=== PATIENT | male | born 1955 | race Caucasian/White ===

== ENCOUNTER 2025-03-16 09:05 | Outpatient (CLI) | payer MEDICARE, OTHER, SELFPAY ==
--- OUTSIDE RECORDS SUMMARY | 2025-01-24 06:40 | XMS_ITS ---
Author Organization [facility] OF [facility] Address [address] [place] [address] Care Team Providers Care Optometrist/Practice Owner Name Role Phone Gavin Fung Primary Care Provider Rossy Escoto Unavailable [phone] REASON FOR VISIT High Risk Foot care Encounters Encounter Location Date Provider Diagnosis 1 OF [facility] [address] [place] [address] 01/24/2025 Rossy Freeman Plan Of Treatment Next Appt Details Provider Name:Rossy Freeman, 05/02/2025 11:00:00 AM, [address], [place], [address], Progress Notes * Dayton WHITTINGTONDOB:1955 (69 yo M)Acc No.[id number]:01/24/2025 Progress Note Patient: Dayton Kelley Provider: Val Freeman DPM :1955 A ge:69 Y S ex:Male Date:01/24/2025 Address:[address] [id number] Pcp:Gavin Fung Subjective: * Chief Complaints: * H igh Risk Foot care * Electronic signature of Krista Freeman DPM on 03/16/2025 at 10:05 AM CDT Sign off status: Pending * Provider: Val Freeman DPM Date: 0 01/24/2025 Generated for Delbert sawant/Loulou/Vin on: 1 10:05 AM CDT
--- OUTSIDE RECORDS SUMMARY | 2025-03-16 10:05 | XMS_ITS | Clinical Summary ---
Author Organization [facility] Healthcare Address [address] [place] [address] Care Team Providers Care Vault Keeper Name Role Phone Gavin Fung MD Primary Care Provider Allergies Active Allergy Reactions Criticality Noted Date Comments Penicillins Hives Medium 12/15/2017 Sulfa (Sulfonamide Antibiotics) Hives Medium 11/[address] (CYMBALTA) 60 mg capsule 2 times daily. Acti ve pregabalin (LYRICA) 50 mg capsule 2 times daily. Activ e mometasone (NASONEX) 50 mcg/actuation nasal spray daily. Active loratadine (CLARITIN) 10 mg tablet 9 Active atorvastatin (LIPITOR) 20 mg tablet Take 0.5 tablets (10 mg total) by mouth daily Active levocetirizine (XYZAL) 5 mg tablet Take 1 tablet (5 mg total) by mouth daily Active diclofenac sodium (VOLTAREN) 1 % gel 9 Active finasteride (PROSCAR) 5 mg tablet Take 1 tablet (5 mg total) by mouth daily 1 Active acetaminophen (TYLENOL) 500 mg tablet Take 2 tablets (1,000 mg total) by mouth daily 2 Active latanoprost (XALATAN) 0.005 % ophthalmic solution Administer 1 drop into affected eye(s) daily 3 Active omeprazole (PriLOSEC) 40 mg capsule 3 Active terbinafine (LamiSIL) 250 mg tablet Take 1 tablet (250 mg total) by mouth daily 4 Active lidocaine (LIDODERM) 5 % Place 1 patch on the skin daily 3 Active fluticasone propion-salmete roL (ADVAIR DISKUS) 500-50 mcg/dose diskus inhaler Inhale 1 puff 2 (two) times a day 4 Active azelastine (ASTELIN) 137 mcg (0.1 %) nasal spray Administer 2 sprays into affected nostril(s) 2 (two) times a day 3 Active albuterol HFA (PROVENTIL HFA,VENTOLIN HFA,PROAIR HFA) 90 mcg/actuation inhaler INHALE 2 PUFFS BY MOUTH INTO THE LUNGS EVERY 6 HOURS NEEDED FOR WHEEZING Active polyethylene glycol (MIRALAX) 17 gram packet Take by mouth as needed Active cinnamon bark (Cinnamon) 500 mg capsule Take 1 capsule (500 mg total) by mouth daily Active metFORMIN (GLUCOPHAGE) 500 mg tablet Take 1 tablet (500 mg total) by mouth daily with breakfast 4 Active turmeric/turmer ic ext/pepr ext (turmeric-turme heena ext-pepper) 900-100-5 mg capsule Take 2,000 mg by mouth nightly 4 Active vibegron 75 mg tablet Take 75 mg by mouth daily 4 Active triamcinolone (KENALOG) 0.1 % cream Apply topically 2 (two) times a day Active benzonatate (TESSALON) 200 mg capsule 4 Active methylPREDNISol one (MEDROL DOSEPACK) 4 mg Dosepack 4 Active QUEtiapine (SEROquel) 25 mg tablet Take 1 tablet (25 mg total) by mouth 2 (two) times a day 60 tablet 5 4 Active Active Problems Problem Noted Date Diagnosed Date Diastasis recti 05/13/2023 Chronic bilateral low back pain without sciatica 02/11/2023 SAH (subarachnoid hemorrhage) 12/22/2022 Prediabetes 03/19/2022 Precordial pain 01/07/2022 Gastroesophageal reflux disease without esophagi tis 12/27/2021 Incomplete right bundle branch block (RBBB) 10/2018 Overview (10/30/2023): Based on EKG done through the [place] Family history of congenital or genetic conditio n 02/04/2018 Frontotemporal dementia 12/15/2017 Assessment & Plan (12/08/2024 11:41 AM CDT): Overall, stable cognitive testing. Continue current medication regimen. He is now at [facility] and has acclimated well. He expressed his desire to move to the assisted living portion but memory care would be more suitable for him. Follow-up in 6 months via Zoom or sooner if need be. Assessment & Plan (05/24/2024 11:00 AM RECRUITER ACCOUNT MANAGER): Overall, stable cognitive testing. He continues to have behavioral disturbances. We will trial increasing his quetiapine/Seroquel to 25 mg BID. We will order physical therapy as it was beneficial for him in the past. Recommended CS downsize patient's phone to a low function phone that does not have access to the web. Follow-up in 6 months or sooner if need be. Assessment & Plan (11/25/2023 9:37 AM CDT): Initiate 25 mg quetiapine/Seroquel nightly to help with behavioral changes. Patient to move to [facility] next week. I would like him to start physical therapy. CS states he may already have physical therapy scheduled but will notify me if we need a new order. Encouraged patient to engage in activities within facility when he moves in and increase physical activity. Follow-up in 6 months or sooner if need be. Assessment & Plan (01/06/2023 6:50 PM CDT): Interval events following fall, SDH, SAH reviewed. Pt was on Keppra for 1 week for seizure management following SDH/ SAH. This coincided with decline in cognition and mobility. Keppra was stopped on 01/01. UTI was identified around the same time, currently on abx for that. Pt's mentation is clearing and mobility is improving just starting today. Still quite far off baseline. Prolonged latency to questions during telehealth interview today. Plan to reconnect with telehealth visit in 2 months to determine new baseline when he is further out from recovery. Dispo after rehab discussed. VA benefits to be availed. CS open to further placement if DC to home is not manageable. Assessment & Plan (01/01/2021 5:50 PM CDT): Recommend increasing Cymbalta to 90mg in AM and 60mg in PM to help address obsessions and minimize sleep disturbance. Pt already enrolled in FTD registry. Scheduled to have ALLFTD visit this month. Assessment & Plan (12/27/2019 11:33 PM CDT): Pt/ Family to send in list of all medications and all supplements in order to maintain an accurate list in the medical record. Encouraged to limit consumption of and spending on supplements that are unproven. - Curcumin Revisit with primary PHOTOGRAPHERS' MODEL about increasing duloxetine to better address OCD behaviors. 3D bMRI to monitor for interval change since 2017. ALLFTD enrollment discussed. Assessment & Plan (12/21/2018 5:13 PM CDT): Monitor driving Pain management through PCP to [place] Recommend discontinuing Ranitidine in favor of PPI (Prevacid, Prilosec, Nexium) to minimize confusion. To be directed by PCP. Assessment & Plan (12/15/2017 5:27 PM CDT): No changes to medications. 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 13 OA (osteoarthritis) of knee 09/02/2012 Rotator cuff tendinitis 09/02/2012 Allergic rhinitis 04/14/2012 Hyperlipidemia 02/11/2012 Peripheral neuropathy 02/11/2012 TMJ (dislocation of temporomandibular joint) Plantar fascia syndrome 12/30/1999 Immunizations Immunization Administration Dates Next Due Influenza, Quadrivalent, Hig h Dose, Preservative Free, Intrr 02/26/2022,03/06/2021,02/16/2020 Influenza, Quadrivalent, Spl it, Preservative Free, Intramuscular 02/05/2019,03/02/2018,03/01/2018 Influenza, Trivalent, Preser vative Free, Intramuscular 02/29/2016,02/17/2015 Influenza, Unspecified 03/23/2023,2020,03/02/2018,03/01,02/16/2013 Moderna SARS-CoV-2 Monovalen t Vaccination (12+ YRS) 02/26/2022,09/21/2021 Pneumococcal Conjugate PCV 13 02/05/2019 Pneumococcal Polysaccharide PPV23 07/05/2020,08/2014 RSV, Bivalent, Protein Subun it Rsvpref, Diluent (Abrysvo) 04/22/2023 Tdap 08/20/2018,04/14/2012 ZOSTER Recombinant 08/03/2021,02/02/2021 Surgical History Surgery Date Site/Laterality Comments [place] TONSILLECTOMY PRIMARY/SEC ONDARY <AGE 12 Tonsillectomy - (Added by TW Conv) [place] SEPTOPLASTY/SUBMUCOUS RES ECJ W/WO CARTILAGE GRF Septoplasty - (Added by TW Conv) [place] IRIDOTOMY STAB INC SPX XC P TRANSFIXION Iridotomy - (Added by TW Conv) [place] RPR NONUNION/MALUNION RADIUS/ULNA W/O AUTOGRAFT Repair Of Nonunion Of The Radius - (Added by TW Conv) VASECTOMY IRIDOTOMY / IRIDECTOMY SEPTOPLASTY TONSILLECTOMY REPAIR NONUNION / DEFECT OF RADIUS / ULNA Medical History Medical History Date Comments Dementia (HCC) BPH (benign prostatic hyperplasia) Fibromyalgia HLD (hyperlipidemia) Sleep apnea Head injury SDH (subdural hematoma) (HCC) 12/22/2022 Pi ckleball fall SAH (subarachnoid hemorrhage) 12/22/2022 Pi ckleball fall Frontotemporal dementia d/t C9or f72 mutation Polypharmacy 12/22/2022 Effects of Keppr a Family History Medical History Relation Name Comments ALS Cousin Family history of amyotrophic lateral sclerosis - (Added by TW Conv) Down syndrome Daughter Family history of Down syndrome - (Added by TW Conv) ALS Father's Brother Family hist ory of amyotrophic lateral sclerosis - (Added by TW Conv) ALS Father's Sister Family histo ry of amyotrophic lateral sclerosis - (Added by TW Conv) Stroke Mother Family history of cerebrovascular accident - (Added by TW Conv) Relation Name Status Comments Cousin Daughter Father's Brother Father's Sister Mother Social History Tobacco Use Types Packs/Day Years Used Date Smoking Tobacco: Never Smokeless Tobacco: Never Tobacco Cessation:Counseling Given: Not Answered Sex and Gender Information Value Date Recorded Sex Assigned at Not on file Legal Sex Male 7:40 AM RECRUITER ACCOUNT MANAGER Gender Identity Male 10/21/2019 11:29 AM CDT Sexual Orientation Straight 10/21/2019 11 :29 AM CDT Obstetrics History Last Filed Vital Signs Vital Sign Reading Time Taken Comments Blood Pressure 158/82 05/24/2024 10:11 AM RECRUITER ACCOUNT MANAGER Pulse 87 05/24/2024 10:11 AM RECRUITER ACCOUNT MANAGER Temperature 36.9 C (98.5 F) 05/24/2024 10:11 AM RECRUITER ACCOUNT MANAGER Respiratory Rate - - Oxygen Saturation 97% 05/24/2024 10:11 AM RECRUITER ACCOUNT MANAGER Inhaled Oxygen Concentration - - Weight 118.2 kg (260 lb 8 oz) 05/24/2024 10:11 A M RECRUITER ACCOUNT MANAGER Height 180.3 cm (5' 11) 05/24/2024 10:11 AM RECRUITER ACCOUNT MANAGER Body Mass Index 36.33 05/24/2024 10:11 AM RECRUITER ACCOUNT MANAGER Plan of Treatment Health Maintenance Due Date Last Done Comments Colon Cancer Screening-Colonoscopy 1955 Depression Screening 1955 Fall Risk Assessment 1955 Hepatitis C Screening 1955 Well Visit 65+ 2018 Covid-19 Vaccine (2024-2 6 season) 2025 02/26/2022, 09/21/2021, 04/17/2021, Additional history exists Influenza Vaccine (#1) 2025 , 03/23/2023, 02/26/2022, Additional history exists DTaP/Tdap/Td Vaccine (5 - Td or Tdap) 08/20/2028 08/20/2018, 04/14/2012, 05/02/2009, Additional history exists Pneumococcal vaccine 65+ Completed 021, 02/05/2019, 03/07/2016, Additional history exists Zoster Vaccine Completed 08/03/2021, 07/2020, 10/13/2014 Insurance MEDICARE Remitly MEDICARE FOR LIFE [facility] [place] [id number] MEDICARE FOR LIFE Care Teams Vault Keeper Relationship Specialty Start Date End Date Gavin Fung MD [address] [facility] [address] [place] [address] PCP - General Family Practice 04/03/23
--- OUTSIDE RECORDS SUMMARY | 2025-03-16 10:06 | XMS_ITS | Patient Health Record ---
Author Organization [facility] Address [address] [place] [address] Care Team Providers Care Outpatient Services Director Name Role Phone Gavin Fung Primary Care Provider Rossy Escoto Unavailable [phone] Allergies Allergen (clinical drug ingredient) Drug/Non Drug Allergy documented on EMR Reaction Allergy Type Onset Date Status Penicillin Unknown Drug Allergy Active Substance with sulfonamide structure and antibacterial mechanism of action (substance) Sulfa Antibiotics Unknown Drug Allergy Active Reason For Referral No Information Medications Medication SIG (Take, Route, Frequency, Duration) Notes Start Date End Date Status Claritin Active DULoxetine HCl 60 MG Capsule Delayed Release Particles Oral; Duration: 28 Days Active metFORMIN HCl ER 500 MG Tablet Extended Release 24 Hour Oral; Duration: 28 Days Active Polyethylene Glycol Active Turmeric Active Pregabalin 50 MG Capsule Oral; Duration: 30 Days Not-Taking/PRN Cymbalta Active Albuterol Sulfate HFA 108 (90 Base) MCG/ACT Aerosol Solution Inhalation; Duration: 25 Days Active Cinnamon Active QUEtiapine Fumarate 25 MG Tablet Oral; Duration: 28 Days Active Multivitamin Active Finasteride 5 MG Tablet Oral; Duration: 28 Days Active PriLOSEC Active Nitrofurantoin Monohyd Macro 100 MG Capsule Oral; Duration: 10 Days Active Tylenol Arthritis Pain Active Lidocaine 5 % Patch External; Duration: 30 Days Active Cranberry Active SEROquel Active Trulicity Active MiraLax Active Azelastine & Fluticasone Active Lipitor Active Latanoprost 0.005 % Solution Ophthalmic; Duration: 28 Days Active Social History Tobacco Use: Social History Observation Description Date Details (start date - stop date) Never Smoker NA - NA Social History Tobacco Use: Social Info Question Answer Notes Tobacco Control (Standard) Tobacco use: Nonsmoker Additional Details Category Social Info Options Details Miscellaneous: Exercise: Sedentary Occupation: Retired Security enforcer, Disabled FMS Living with: friends, Drugs/Alcohol: Alcohol use: Social alcoho l use Recreational drugs Patient martina ross recreational drug use Problems Problem Type SNOMED Code ICD Code Onset Dates Problem Status W/U Status Risk Notes Problem Peripheral venous insufficiency (79221011) Venous insufficiency (I87.2) Active confirmed Problem Plantar fasciitis (295899082) Plantar fasciitis (M72.2) Active confirmed Vital Signs Height 72 in 02/07/2025 Weight 250 lbs 02/07/2025 BMI 33.9 kg/m2 02/07/2025 Encounters Encounter Location Date Provider Diagnosis 1 [facility] [address] [place] [address] 04/12/2024 Rossy Freeman Venous insufficiency I87.2 ; Onychogryphosis L60.2 ; Nail dystrophy L60.3 ; Callus of foot L84 and Plantar fasciitis M72.2 1 [facility] [address] [place] [address] 06/28/2024 Rossy Freeman Venous insufficiency I87.2 ; Onychogryphosis L60.2 and Nail dystrophy L60.3 1 [facility] [address] [place] [address] 09/06/2024 Rossy Freeman Venous insufficiency I87.2 ; Onychogryphosis 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 ; Nail dystrophy L60.3 and Toe pain, left M79.675 1 [facility] [address] [place] [address] 11/15/2024 Rossy Freeman Venous insufficiency I87.2 ; Onychogryphosis L60.2 and Nail dystrophy L60.3 1 [facility] [address] [place] [address] 02/07/2025 Rossy Freeman Venous insufficiency I87.2 ; Onychogryphosis L60.2 ; Nail dystrophy L60.3 and Open wound of left lower extremity, initial encounter S81.802A Assessments Encounter Date Diagnosis (ICD Code) Assessment Notes Treatment Notes Treatment Clinical Notes Section Notes 04/12/2024 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 06/28/2024 Venous insufficiency (ICD-10 - I87.2) Considering the associated comorbidities and physical exam findings today, this patient is at substantial risk of developing serious foot complications in the absence of regular and professional palliative foot care. 09/06/2024 Onychogryphosis (ICD-10 - L60.2) 06/28/2024 Onychogryphosis (ICD-10 - L60.2) 09/06/2024 Venous insufficiency (ICD-10 - I87.2) Considering the associated comorbidities and physical exam findings today, this patient is at substantial risk of developing serious foot complications in the absence of regular and professional palliative foot care. 11/15/2024 Onychogryphosis (ICD-10 - L60.2) 11/15/2024 Venous insufficiency (ICD-10 - I87.2) Considering the associated comorbidities and physical exam findings today, this patient is at substantial risk of developing serious foot complications in the absence of regular and professional palliative foot care. 02/07/2025 Onychogryphosis (ICD-10 - L60.2) 02/07/2025 Venous insufficiency (ICD-10 - I87.2) Considering the associated comorbidities and physical exam findings today, this patient is at substantial risk of developing serious foot complications in the absence of regular and professional palliative foot care. 02/07/2025 Nail dystrophy (ICD-10 - L60.3) 11/15/2024 Nail dystrophy (ICD-10 - L60.3) 06/28/2024 Nail dystrophy (ICD-10 - L60.3) 09/06/2024 Nail dystrophy (ICD-10 - L60.3) 04/12/2024 Nail dystrophy (ICD-10 - L60.3) 04/12/2024 Callus of foot (ICD-10 - L84) 09/06/2024 Toe pain, left (ICD-10 - M79.675) Evaluation today included a review of medical history, review of systems, discussion of exam findings, and review of diagnoses and treatment options. His toes are feeling better. I discussed that the pain could have been nerve related. He will monitor his symptoms. I discussed potential use of topical medication as needed. 02/07/2025 Open wound of left lower extremity, initial encounter (ICD-10 - S81.802A) Evaluation today included a review of medical history, review of systems, discussion of exam findings, and review of diagnoses and treatment options. Recommended continued application of manuka honey daily with a bandage. He was advised to monitor the wound for any signs of infection and should call with any issues. I discussed the importance of controlling his edema for wound healing. He was advised to elevate his legs as much as possible. He can also use a compression sock for the swelling. 04/12/2024 Plantar fasciitis (ICD-10 - M72.2) Evaluation today included a review of medical history, review of systems, discussion of exam findings, and review of diagnoses and treatment options. Recommended that he rest, ice and elevate the feet as needed for pain. He was given stretching exercises to perform. I stressed the importance of wearing good supportive shoes. I discussed the potential use of orthotics in his shoes. Plan Of Treatment Next Appt Details Provider Name:Rossy Freeman, 05/02/2025 11:00:00 AM, [address], [place], [address], Insurance Providers Payer Name Payer Address Payer Phone Subscriber Number Group Number Insured Name Patient Relationship to Insured Coverage Start Date Coverage End Date Medicare [address] Feng ross [place] [id number] Dayton Boswell Self - patient is the insured [employer] [address] [place] [address] [id number] Andreia [place] Self - patient is the insured Medical (General) History Medical History History ICD Code Arthritis, Depression, GERD, Hyperlipide floyd, Dementia
--- OUTSIDE RECORDS SUMMARY | 2025-03-16 10:06 | XMS_ITS | Patient Health Record ---
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 DOMENICO ROCK Primary Care Provider Lorraine Reynoso Unavailable [phone] Allergies Allergen (clinical drug ingredient) Drug/Non Drug Allergy documented on EMR Reaction Allergy Type Onset Date Status Penicillin Unknown Drug Allergy Active Substance with sulfonamide structure and antibacterial mechanism of action (substance) Sulfa Antibiotics Unknown Drug Allergy Active Reason For Referral No Information Medications Medication SIG (Take, Route, Frequency, Duration) Notes Start Date End Date Status Latanoprost 0.005 % Solution 1 drop in each eye Ophthalmic Once a day Active Gemtesa 75 MG Tablet 1 tablet Orally Onc e a day Active Finasteride 5 MG Tablet 1 tablet Orally Once a day Active DULoxetine HCl 60 MG Capsule Delayed Release Particles 1 capsule Orally twice a day Active Diclofenac Sodium 1 % Gel as directed Ex ternally 4 times a day Active Cranberry 200 MG Capsule 2 capsules Orally daily Active cloZAPine 25 MG Tablet 1.5 tablets Orall y Once a day Active Triamcinolone Acetonide 0.1 % Ointment 1 application Externally Twice a day Active Cinnamon 500 MG Capsule 1 capsule Orally daily Active QUEtiapine Fumarate 25 MG Tablet 1 tablet Orally Once a day As needed Active CertaVite Senior - Tablet 1 tablet Orally daily Active EvenCare G2 Test - Strip as directed In Vitro Active Azelastine HCl 137 MCG/SPRAY Solution 2 sprays in each nostril Nasally Twice a day Active UpstartCare G2 Monitor - Device as directed Active Benzonatate 200 MG Capsule 1 capsule as needed Orally Three times a day Active Albuterol 90 MCG/ACT Aerosol Solution 2 puffs Inhalation every 8 hours As needed Active Atorvastatin Calcium 20 MG Tablet 1 tablet Orally Once a day Active Acetaminophen ER 650 MG Tablet Extended Release 2 tablets Orally twice a day Active Acetaminophen 325 MG Tablet 2 tablets Orally every 4 hours As needed Active Turmeric 500 MG Capsule 4 capsules Orally daily Active QUEtiapine Fumarate 50 MG Tablet 2 tablets Orally Once a day Active Macrobid 100 MG Capsule 1 capsule with f ood Orally twice a day; Duration: 5 days 03/11/2025 03/16/2025 Active Polyethylene Glycol 3350 17 GM/SCOOP Powder as directed Orally daily Active Probiotic - Capsule 1 capsule Orally twi ce a day; Duration: 7 days 03/11/2025 03/18/2025 Active Omeprazole 40 MG Capsule Delayed Release 1 capsule 1/2 to 1 hour before morning meal Orally Once a day Active Mounjaro 2.5 MG/0.5ML Solution Pen-injector 0.5 ml Subcutaneous once a week Active Pregabalin 50 MG Capsule 1 capsule Orall y twice a day 03/11/2025 Active metFORMIN HCl ER 500 MG Tablet Extended Release 24 Hour 2 tablets Orally Once a day Active Loratadine 10 MG Tablet 1 tablet Orally Once a day Active Lidocaine 5 % Patch 1 patch remove after 12 hours Externally Once a day Active Social History Tobacco Use: Social History Observation Description Date Details (start date - stop date) Never Smoker NA - NA Social History Drug/Alcohol: Social Info Question Answer Notes Drugs Have you used drugs other than those for medical reasons in the past 12 months? No AUDIT-C (Standard) Did you have a drink containing alcohol in the past year? 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) Active confirmed Problem Essential hypertension (66464849) Essential (primary) hypertension (I10) Active confirmed Problem Allergic rhinitis (22508456) Allergic rhinitis, unspecified (J30.9) Active confirmed Problem Gastro-esophagea l reflux disease without esophagitis (870395297) Gastro-esophagea l reflux disease without esophagitis (K21.9) Active confirmed Problem Fibromyalgia (032116970) Fibromyalgia (M79.7) Active confirmed Problem Right bundle branch block (61835394) Right bundle branch block (I45.10) Active confirmed Problem Neuropathy (391880987) Neuropathy (G62.9) Active confirmed Problem Subarachnoid hemorrhage (77126683) Subarachnoid hemorrhage (I60.9) Active confirmed Problem Type II diabetes mellitus without complication (272948474) Diabetes mellitus without complication (E11.9) Active confirmed Problem Dementia (62761759) Dementia (F03.90) Active confirmed Encounters Encounter Location Date Provider Diagnosis [facility] [address] [place] [address] 03/08/2025 DOMENICO ROCK [facility] [address] [place] [address] 03/10/2025 Lorraine Edgardo [facility] [address] [place] [address] 03/11/2025 Lorraine [facility] [address] [phone] 03/11/2025 Lorraine Reynoso Plan Of Treatment Next Appt Details Provider Name:Lorraine Reynoso , 03/17/2025 11:45:00 AM, [address] [place] [address], [id number], Insurance Providers Payer Name Payer Address Payer Phone Subscriber Number Group Number Insured Name Patient Relationship to Insured Coverage Start Date Coverage End Date [employer] of [place] [address] [facility] [place] [id number] [place] Self - patient is the insured Medical (General) History Medical History History ICD Code Essential (primary) hypertension I10 Right bundle branch block I45.10 Obstructive sleep apnea (adult) (pediatr ic) G47.33 Allergic rhinitis, unspecified J30.9 Diabetes mellitus without complication E 11.9 Neuropathy G62.9 Dementia F03.90 Subarachnoid hemorrhage I60.9 Gastro-esophageal reflux disease without esophagitis K21.9 Fibromyalgia M79.7 Glaucoma secondary to other eye disorders, unspecified eye, stage unspecified H40.50X0 Surgical History Surgery Date(Month/Year) COLONOSCOPY FLX DX W/COLLJ SPEC WHE* FRACTURE SURGERY SEPTOPLASTY VASECTOMY TONSILLECTOMY PROSTATE SURGERY EYE SURGERY REMOVAL OF SPERM DUCT(S)
--- NOTE | 2025-04-11 09:30 | P.SLEEP_ITS ---
Sleep Study Date of Study: 03/16/25 Ordering Provider: Brianna Choudhary Interpreting Physician: Angelica Avitia DO Sleep Study Type: CPAP Titration Height: 1.8 m Weight: 112.037 kg Body Mass Index: 34.4 Neck Circumference (inches): 18 Valders: 11 Reason for Sleep Study Excessive daytime sleepiness Sleep History The patient is a 69-year-old male with previously diagnosed sleep apnea that had a sleep study ordered by his ENT due to elevated AHI on his compliance data with AutoPAP 5-20 cm H2O. The patient rarely awakens from sleep short of breath. He rarely awakens at night with heartburn, belching or cough. He frequently snores and is frequently loud enough that others complain. He occasionally has trouble sleeping when he has a cold. He denies waking up gasping for air throughout the night. He rarely has breathing problems at night observed by himself or others. He rarely sweats excessively at night. He denies having heart palpitations or irregular heartbeats during the night. He rarely falls asleep during the day but never while driving. He rarely experiences loss of muscle tone when extremely emotional. He denies having trouble at school or work due to sleepiness. He denies sleep paralysis. He occasionally experiences vivid dreamlike scenes upon awakening or falling asleep. He denies feeling afraid of going to sleep. He nightmares. He occasionally remembers his dreams. He frequ ently has thoughts racing through his mind. He rarely feels sad or depressed. He frequently has anxiety. He rarely has muscular tension. He occasionally notices parts of his body jerk. He rarely kicks during the night. He rarely has crawling and aching feelings in his legs but occasionally has leg pain during the night. He occasionally grinds his teeth during sleep and occasionally awakens with morning jaw pain. He is occasionally bothered by pain during the day but rarely awakened by pain during the night. He rarely wakes up feeling stiff in the morning. He occasionally wakes up with sore or achy muscles. He occasionally wakes up with pain in the neck, spine and other joints. He goes to bed at 10:30 p.m. every night. It takes him 10 minutes to fall asleep. He wakes up twice throughout the night to urinate and is able to fall back asleep within 15 minutes. He typically gets 8 hours of sleep per night. He will stay in bed for 5 minutes after waking up in the morning. He currently lives in a nursing home facility he will consume caffeinated tea within 2 hours of bedtime. He denies engaging in physical exercise before bedtime. He will read and watch television before falling asleep. He denies taking naps in afternoon or the evening. He consumes 1 caffeinated beverage per day. He denies tobacco, alcohol and recreational drug use. Sleep Procedure A full night CPAP Titration using the Já Entendi multi-channel system recorded the standard physiologic parameters including EEG, EOG, submentalis EMG, anterior tibialis EMG, EKG, body position, nasal and oral airflow using nasal pressure sensor and thermistor.? Respiratory parameters of chest and abdominal movements were recorded with Respiratory Inductance Plethysmography belts. Oxygen saturation was recorded by pulse oximetry. Video monitoring was also performed. Sleep stages, periodic limb movements, and EEG arousals were scored in 30 second epochs according to the criteria of the AASM Scoring Manual. The Apnea-Hypopnea Index was calculated using CMS guidelines for definition of hypopnea with 4% O2 desaturations while scoring respiratory events. Sleep Architecture The total recording time was 481.3 minutes.? The total sleep time was 355.5 minutes. Sleep latency was 33.0 minutes. REM latency was 258.0 minutes. Sleep efficiency was 73.9%. The patient had 40 awakenings for an awakening index of 6.8. Wake after Sleep Onset time was 93.0 minutes. The patient spent 52.0 minutes, 14.6% of total sleep time in Stage N1. The patient spent 252.5 minutes, 71.0% in Stage N2. The patient spent 0.0 minutes, 0.0% in Stage N3. The patient spent 51.0 minutes, 14.3% in Stage REM. Respiratory Analysis The patient had 98 hypopneas, 21 obstructive apneas, 5 mixed apneas, and 31 central apneas for an overall Apnea Hypopnea Index of 26.2 events per hour. The REM Apnea Hypopnea Index was 37.6. The NREM Apnea Hypopnea Index was 24.2. The patient had a Central Apnea Hypopnea Index of 5.2. There was no evidence of Ton-Lopez Respirations. The patient was started on CPAP 5 cm H2O and titrated to BPAP 25/19 cm H2O. The patient was able to fall asleep starting on CPAP 5 cm H2O. The patient was able to achieve REM sleep starting on CPAP 19 cm H2O. The lowest residual AHI the patient was able to achieve was 13.5 on CPAP 19 cm H2O. Once the patient was titrated past 19 cm H2O, he developed central apneas. On CPAP 19 cm H2O, the patient spent 79 minutes in NREM and 10 minutes in REM with 13 central apneas, 2 mixed apneas and 5 hypopneas, resulting in an AHI of 13.5. The patient had a sleep efficiency of 66.2% on this pressure setting. Arousals There were 247 total arousals for an arousal index of 41.7. There were 130 spontaneous arousals for an index of 21.9. ?There were 88 arousals due to respiratory events for an index of 14.9. There were 9 arousals due to periodic limb movements for an index of 1.5.? There were 19 arousals due to isolated limb movements for an index of 3.2. Periodic Limb Movements The patient had 60 isolated limb movements with an index of 10.1. The patient had 122 periodic limb movements with index of 20.6, which is elevated (normal < 15). Patient had a total of 182 limb movements with a total limb movement index of 30.7. Oximetry Data The patient had an average oxygen saturation of 92.1% in sleep with a minimum oxygen saturation of 82.0% and a maximum oxygen saturation of 96.0%. The patient had 119 oxygen desaturations that were 4% or greater resulting in an Oxygen Desaturation Index of 20.1.? The patient spent 7.6 minutes, 1.6% of total sleep time with an oxygen saturation below 88%. Snoring Profile Moderate snoring was present in the beginning of the study. The snoring resolved once the patient was titrated to BPAP 23/18 cm H2O. Cardiac Profile The EKG showed normal sinus rhythm with occasional PVCs. The patient had an average pulse rate of 67.3 bpm with a minimum pulse rate of 57.0 bpm and a maximum pulse rate of 79.0 bpm. ? EEG Profile No signs of seizure activity seen. Assessment and Plan Assessment and Plan (1) CARRIE (obstructive sleep apnea): Code(s): G47.33 - Obstructive sleep apnea (adult) (pediatric) Status: Acute Assessment and Plan: The patient was started on CPAP 5 cm H2O and titrated to BPAP 25/19 cm H2O. The lowest residual AHI was 13.5 on CPAP 19 cm H2O. The patient's compliance report showed an overall AHI of 7.9 on AutoPAP 5-15 cm H2O. The patient will likely require BPAP with a back-up rate to fully treat his sleep apnea. I recommend that the patient a CPAP Titration starting at CPAP 16 cm H2O with the use of a sleep aid to ensure we obtain enough sleep data and find an optimal pressure setting. Data The data obtained during this sleep study is adequate for interpretation. Certification This sleep study has been reviewed by a board certified sleep medicine physician.
[2025-04-11 15:01] VITALS: BMI 34.4
== END 2025-03-17 07:23 | disposition home or self-care (01) ==
DX: G47.33 Obstructive sleep apnea (adult) (pediatric) (principal)
CPT/HCPCS: 95811